=== PATIENT | male | born 1950 | race Caucasian/White ===

== ENCOUNTER 2023-07-25 13:50 | Inpatient (IN) | payer MEDICARE, BC ==
[~2023-07-25] VITALS: Ht 182.9 cm; Wt 128.8 kg
[2023-07-25] MEDS ORDERED: INSU300I SQ (18:05)
[2023-07-25] MEDS ORDERED: ATOR20TA PO (18:05)
[2023-07-25] MEDS ORDERED: ATEN50TA PO (18:05)
[2023-07-25] MEDS ORDERED: METF-442 PO (18:05)
[2023-07-25] MEDS ORDERED: APIX5TAB PO (18:05)
[2023-07-25] MEDS ORDERED: OLME1TAB19 PO (18:05)
[2023-07-25] MEDS ORDERED: FOLI0.8C PO (18:05)
[2023-07-25] MEDS ORDERED: MOUNJARO SQ (18:05)
[2023-07-25] MEDS ORDERED: SOLI10TA2 PO (18:05)
[2023-07-25 20:28] LABS: INR 1.14 (0.91-1.10)
[2023-07-25] MEDS ORDERED: ACETAMINOPHEN 325 MG TABLET PO PRN (23:00)
[2023-07-25] MEDS ORDERED: Z GUARD REMEDY 4 OZ OINT TP PRN (23:00)
[2023-07-25] MEDS ORDERED: ONDANSETRON HCL/PF 4 MG/2 ML VIAL IVP PRN (23:00)
[2023-07-25] MEDS ORDERED: MAG HYDROX/AL HYDROX/SIMETH 30 ML UDC PO PRN (23:00)
[2023-07-25] MEDS ORDERED: ZOLPIDEM TARTRATE 5 MG TABLET PO PRN (23:00)
[2023-07-25] MEDS ORDERED: DEXTROSE 50%-WATER 50 ML DISP.SYRIN IV PRN (23:00)
[2023-07-25] MEDS ORDERED: MAGNESIUM HYDROXIDE 30 ML UDC PO PRN (23:00)
[2023-07-25] MEDS ORDERED: HYDROCODONE/APAP 5/325MG TABLET PO PRN (23:00)
[2023-07-25] MEDS ORDERED: CEFTRIAXONE 1GM BAG (ER ONLY) 50 ML IV ONE (23:42)
[2023-07-25] MEDS: IV 1/2NS 1000 ML 1,000 ML IV PRN (23:46)
[2023-07-25] MEDS: CEFTRIAXONE 1 G in IV D5W 50 ML IV SCH (23:46)
[2023-07-26] MEDS: MORPHINE SULFATE INJ 2 MG/ML DISP.SYRIN IV PRN ×4 (05:33→20:36)
[2023-07-26 06:00] LABS: APPEARANCE,URINE CLEAR (CLEAR); BILIRUBIN,URINE NEGATIVE (NEGATIVE); BLOOD, URINE NEGATIVE Ery/uL (NEGATIVE); COLOR,URINE DARK YELLOW (YELLOW); KETONES,URINE NEGATIVE (NEGATIVE); LEUKOCYTE ESTERASE ,URINE NEGATIVE (NEGATIVE); NITRITE, URINE NEGATIVE (NEGATIVE); PROTEIN,URINE TRACE mg/dl (NEGATIVE); UGLUCOSE NEGATIVE (NEGATIVE); UROBILINOGEN,URINE 0.2 EU/dL (0.2)
[2023-07-26 07:00] VITALS: BP 127/72; TEMP 98.6; O2SAT 94
[2023-07-26] MEDS: BLOOD SUGAR DIAGNOSTIC 1 EACH STRIP VI SCH ×4 (07:10→21:01)
[2023-07-26 07:59] LABS: BASOPHILS % (AUTO) 0.2 % (0.0-2.0); EOSINOPHILS # (AUTO) 0.2 K/uL (0.0-0.7); EOSINOPHILS % (AUTO) 2.1 % (0.0-6.0); HEMATOCRIT 37 % (39-51); HEMOGLOBIN 12.1 g/dL (13.5-17.5); LYMPHOCYTES # (AUTO) 0.8 K/uL (0.8-4.8); LYMPHOCYTES % (AUTO) 8.8 % (20.0-44.0); MEAN CORPUSCULAR HEMOGLOBIN 28 PG (26.0-33.0); MEAN CORPUSCULAR HGB CONC 33 g/dl (31.0-36.0); MEAN CORPUSCULAR VOLUME 86 fL (80-96); MONOCYTES # (AUTO) 1.4 K/uL (0.1-1.30); MONOCYTES % (AUTO) 14.7 % (2.0-12.0); NEUTROPHILS # (AUTO) 7.1 K/uL (1.8-8.9); NEUTROPHILS % (AUTO) 74.2 % (43.0-81.0); PLATELET COUNT (AUTO) 150 K/uL (150-450); RED CELL DISTRIBUTION WIDTH 15.7 % (11.5-15.0); WHITE BLOOD COUNT (AUTO) 9.6 K/uL (4.3-11.0)
[2023-07-26 08:08] LABS: INR 1.1 (0.91-1.10); PROTHROMBIN TIME 11.6 SECS (9.2-11.1)
[2023-07-26 08:27] LABS: CALCIUM, SERUM 8.9 mg/dL (8.5-10.1); MAGNESIUM 2.1 mg/dL (1.8-2.4); POTASSIUM 3.8 mmol/L (3.5-5.1)
[2023-07-26] MEDS: PANTOPRAZOLE 40 MG VIAL IV SCH (09:33)
[2023-07-26] MEDS ORDERED: MIDAZOLAM HCL 2 MG/2ML VIAL ONE (14:02)
[2023-07-26] MEDS ORDERED: ROCURONIUM BROMIDE 50 MG/5 ML ONE (14:02)
[2023-07-26] MEDS ORDERED: FENTANYL PF 100MCG/2ML AMPUL ONE (14:02)
[2023-07-26] MEDS ORDERED: TRANEXAMIC ACID 1,000 MG/10 ML VIAL ONE (15:19)
[2023-07-26] MEDS ORDERED: HYDROMORPHONE INJ 2 MG/ML DISP.SYRIN ONE (15:34)
[2023-07-26] MEDS ORDERED: BUPIVACAINE 0.5 % PF 150 MG/30 ML VIAL ONE ×2 (15:34→15:57)
[2023-07-26] MEDS: INSULIN REGULAR, HUMAN 100 UNIT/ML 3 ML VIAL SQ PRN (18:26)
[2023-07-26] MEDS: IV 1/2NS 1000 ML 1,000 ML IV PRN (18:43)
[2023-07-26 20:00] VITALS: BP 130/80; TEMP 98.4; O2SAT 90; O2SAT 95
[2023-07-26] MEDS: CEFTRIAXONE 1 G in IV D5W 50 ML IV SCH (20:25)
[2023-07-26] MEDS: *INSULIN REGULAR(HUMULIN R)HUM 100 UNIT/ML VIAL SQ PRN (21:02)
[2023-07-26] MEDS: CEFAZOLIN 2 GM in IV D5W 100 ML IV SCH (22:53)
[2023-07-27] MEDS: CEFAZOLIN 2 GM in IV D5W 100 ML IV SCH ×2 (06:00→15:32)
[2023-07-27] MEDS: IV 1/2NS 1000 ML 1,000 ML IV PRN (06:10)
[2023-07-27] MEDS: MORPHINE SULFATE INJ 2 MG/ML DISP.SYRIN IV PRN ×3 (06:26→15:18)
[2023-07-27] MEDS: BLOOD SUGAR DIAGNOSTIC 1 EACH STRIP VI SCH ×4 (06:48→22:10)
[2023-07-27] MEDS: INSULIN REGULAR, HUMAN 100 UNIT/ML 3 ML VIAL SQ PRN ×2 (06:49→13:51)
[2023-07-27 07:25] LABS: BASOPHILS % (AUTO) 0.2 % (0.0-2.0); EOSINOPHILS % (AUTO) 0.1 % (0.0-6.0); HEMATOCRIT 35 % (39-51); HEMOGLOBIN 11.5 g/dL (13.5-17.5); LYMPHOCYTES # (AUTO) 0.8 K/uL (0.8-4.8); LYMPHOCYTES % (AUTO) 7.2 % (20.0-44.0); MEAN CORPUSCULAR HEMOGLOBIN 28 PG (26.0-33.0); MEAN CORPUSCULAR HGB CONC 33 g/dl (31.0-36.0); MEAN CORPUSCULAR VOLUME 87 fL (80-96); MONOCYTES # (AUTO) 1.4 K/uL (0.1-1.30); MONOCYTES % (AUTO) 12.7 % (2.0-12.0); NEUTROPHILS # (AUTO) 8.8 K/uL (1.8-8.9); NEUTROPHILS % (AUTO) 79.8 % (43.0-81.0); PLATELET COUNT (AUTO) 132 K/uL (150-450); RED BLOOD CELL COUNT(AUTO) 4.06 MIL/uL (4.5-6.0); RED CELL DISTRIBUTION WIDTH 15.5 % (11.5-15.0)
[2023-07-27 07:51] LABS: CALCIUM, SERUM 8.5 mg/dL (8.5-10.1); CREATININE 0.8 mg/dL (0.6-1.3); PHOSPHORUS 2.4 mg/dL (2.5-4.9); POTASSIUM 4.3 mmol/L (3.5-5.1)
[2023-07-27 08:00] VITALS: BP 145/88; TEMP 99; O2SAT 96
[2023-07-27] MEDS: PANTOPRAZOLE 40 MG VIAL IV SCH (09:04)
[2023-07-27] MEDS ORDERED: Sodium Phosphate 15 MMOL in IV NS 0.9% 245 ML IV ONE (16:00)
[2023-07-27] MEDS ORDERED: APIXABAN 5 MG TABLET PO ONE (17:00)
[2023-07-27 20:00] VITALS: BP 120/71; TEMP 98.5; O2SAT 94
[2023-07-27] MEDS: CEFTRIAXONE 1 G in IV D5W 50 ML IV SCH (21:40)
[2023-07-27] MEDS: *INSULIN REGULAR(HUMULIN R)HUM 100 UNIT/ML VIAL SQ PRN (22:10)
[2023-07-28] MEDS: IV 1/2NS 1000 ML 1,000 ML IV PRN (01:06)
[2023-07-28] MEDS: MORPHINE SULFATE INJ 2 MG/ML DISP.SYRIN IV PRN ×5 (01:22→22:00)
[2023-07-28] MEDS: INSULIN REGULAR, HUMAN 100 UNIT/ML 3 ML VIAL SQ PRN ×2 (06:40→11:57)
[2023-07-28] MEDS: BLOOD SUGAR DIAGNOSTIC 1 EACH STRIP VI SCH ×4 (06:40→21:02)
[2023-07-28 06:51] LABS: BASOPHILS % (AUTO) 0.3 % (0.0-2.0); EOSINOPHILS # (AUTO) 0.3 K/uL (0.0-0.7); EOSINOPHILS % (AUTO) 3.2 % (0.0-6.0); HEMATOCRIT 32 % (39-51); HEMOGLOBIN 10.7 g/dL (13.5-17.5); LYMPHOCYTES # (AUTO) 0.8 K/uL (0.8-4.8); LYMPHOCYTES % (AUTO) 9.3 % (20.0-44.0); MEAN CORPUSCULAR HEMOGLOBIN 28 PG (26.0-33.0); MEAN CORPUSCULAR HGB CONC 33 g/dl (31.0-36.0); MEAN CORPUSCULAR VOLUME 85 fL (80-96); MONOCYTES # (AUTO) 1.2 K/uL (0.1-1.30); MONOCYTES % (AUTO) 12.8 % (2.0-12.0); NEUTROPHILS # (AUTO) 6.8 K/uL (1.8-8.9); NEUTROPHILS % (AUTO) 74.4 % (43.0-81.0); PLATELET COUNT (AUTO) 158 K/uL (150-450); RED BLOOD CELL COUNT(AUTO) 3.79 MIL/uL (4.5-6.0); RED CELL DISTRIBUTION WIDTH 15.1 % (11.5-15.0); WHITE BLOOD COUNT (AUTO) 9.1 K/uL (4.3-11.0)
[2023-07-28 07:25] LABS: CALCIUM, SERUM 8.1 mg/dL (8.5-10.1); CREATININE 0.8 mg/dL (0.6-1.3); PHOSPHORUS 2.2 mg/dL (2.5-4.9); POTASSIUM 3.9 mmol/L (3.5-5.1)
[2023-07-28 07:30] VITALS: BP 141/92; TEMP 97.9; O2SAT 91
[2023-07-28] MEDS: PANTOPRAZOLE 40 MG VIAL IV SCH (09:17)
[2023-07-28 16:24] VITALS: BP 142/73; TEMP 98.3; O2SAT 90
[2023-07-28] MEDS ORDERED: Sodium Phosphate 15 MMOL in IV NS 0.9% 245 ML IV ONE (17:00)
[2023-07-28] MEDS: CEFTRIAXONE 1 G in IV D5W 50 ML IV SCH (20:49)
[2023-07-28 20:53] VITALS: BP 136/80; TEMP 98.1; O2SAT 91
[2023-07-28] MEDS: MUPIROCIN OINT 2% 22 GM TUBE NS SCH (20:53)
[2023-07-29] MEDS: IV 1/2NS 1000 ML 1,000 ML IV PRN ×2 (00:52→23:25)
[2023-07-29 07:30] VITALS: BP 139/79; TEMP 98.2; O2SAT 95
[2023-07-29 07:37] LABS: BASOPHILS % (AUTO) 0.5 % (0.0-2.0); EOSINOPHILS # (AUTO) 0.4 K/uL (0.0-0.7); EOSINOPHILS % (AUTO) 4.9 % (0.0-6.0); HEMATOCRIT 33 % (39-51); HEMOGLOBIN 10.8 g/dL (13.5-17.5); LYMPHOCYTES # (AUTO) 0.7 K/uL (0.8-4.8); LYMPHOCYTES % (AUTO) 8.5 % (20.0-44.0); MEAN CORPUSCULAR HEMOGLOBIN 28 PG (26.0-33.0); MEAN CORPUSCULAR HGB CONC 33 g/dl (31.0-36.0); MEAN CORPUSCULAR VOLUME 85 fL (80-96); MONOCYTES # (AUTO) 1.1 K/uL (0.1-1.30); MONOCYTES % (AUTO) 12.9 % (2.0-12.0); NEUTROPHILS # (AUTO) 6.5 K/uL (1.8-8.9); NEUTROPHILS % (AUTO) 73.2 % (43.0-81.0); PLATELET COUNT (AUTO) 185 K/uL (150-450); RED BLOOD CELL COUNT(AUTO) 3.86 MIL/uL (4.5-6.0); RED CELL DISTRIBUTION WIDTH 14.7 % (11.5-15.0); WHITE BLOOD COUNT (AUTO) 8.9 K/uL (4.3-11.0)
[2023-07-29] MEDS: MORPHINE SULFATE INJ 2 MG/ML DISP.SYRIN IV PRN (07:40)
[2023-07-29 07:51] LABS: CALCIUM, SERUM 8.5 mg/dL (8.5-10.1); CARBON DIOXIDE 21 mmol/L (21-32); CHLORIDE 102 mmol/L (98-107); CREATININE 0.7 mg/dL (0.6-1.3); GLUCOSE 139 mg/dL (74-106); PHOSPHORUS 2.4 mg/dL (2.5-4.9); POTASSIUM 3.8 mmol/L (3.5-5.1); SODIUM SERUM 133 mmol/L (136-145); UREA NITROGEN, BLOOD 11 mg/dL (7-18)
[2023-07-29] MEDS: PANTOPRAZOLE 40 MG VIAL IV SCH (08:43)
[2023-07-29] MEDS: MUPIROCIN OINT 2% 22 GM TUBE NS SCH ×2 (10:30→20:43)
[2023-07-29] MEDS ORDERED: POLYMYXIN B SULFATE 0 UNITS ONE (11:11)
[2023-07-29] MEDS ORDERED: BUPIVACAINE 0.5 % PF 150 MG/30 ML VIAL ONE (11:11)
[2023-07-29] MEDS ORDERED: ALBUMIN 5% 500 ML IV ONE (12:03)
[2023-07-29] MEDS ORDERED: FENTANYL PF 100MCG/2ML AMPUL ONE (12:04)
[2023-07-29] MEDS ORDERED: MIDAZOLAM HCL 2 MG/2ML VIAL ONE (12:04)
[2023-07-29] MEDS ORDERED: Magnesium 1 GM/2 ML VIAL ONE (12:04)
[2023-07-29] MEDS ORDERED: ROCURONIUM BROMIDE 50 MG/5 ML ONE (12:05)
[2023-07-29] MEDS ORDERED: ROPIVACAINE HCL 0.5% 5 MG/ML 30ML VIAL ONE (12:07)
[2023-07-29] MEDS ORDERED: DOCUSATE SODIUM 250 MG CAPSULE PO PRN (12:30)
[2023-07-29] MEDS: BLOOD SUGAR DIAGNOSTIC 1 EACH STRIP VI SCH ×4 (13:36→21:11)
[2023-07-29] MEDS ORDERED: DESFLURANE 240 ML BOTTLE IH ONE (14:21)
[2023-07-29 16:50] VITALS: BP 128/81; TEMP 98.3; O2SAT 96
[2023-07-29] MEDS ORDERED: Sodium Phosphate 15 MMOL in IV NS 0.9% 245 ML IV SCH (17:00)
[2023-07-29] MEDS ORDERED: BISACODYL SUPP (10 MG) 10 MG/SUPP.RECT SUPP.RECT RC PRN (17:30)
[2023-07-29] MEDS: INSULIN REGULAR, HUMAN 100 UNIT/ML 3 ML VIAL SQ PRN (17:37)
[2023-07-29 20:00] VITALS: BP 122/75; TEMP 98.2; O2SAT 93
[2023-07-29] MEDS ORDERED: APIXABAN 5 MG TABLET PO SCH (20:00)
[2023-07-29] MEDS: CEFAZOLIN 2 GM in IV D5W 100 ML IV SCH (21:01)
[2023-07-29] MEDS: *INSULIN REGULAR(HUMULIN R)HUM 100 UNIT/ML VIAL SQ PRN (21:15)
[2023-07-30] MEDS: MORPHINE SULFATE INJ 2 MG/ML DISP.SYRIN IV PRN ×5 (02:06→21:33)
[2023-07-30] MEDS: CEFAZOLIN 2 GM in IV D5W 100 ML IV SCH (05:09)
[2023-07-30] MEDS ORDERED: CEFAZOLIN 2 GM in IV D5W 100 ML IV SCH ×5 (07:00→14:00)
[2023-07-30] MEDS: BLOOD SUGAR DIAGNOSTIC 1 EACH STRIP VI SCH ×4 (07:03→21:18)
[2023-07-30 07:30] VITALS: BP 157/85; TEMP 98.8; O2SAT 96
[2023-07-30] MEDS: APIXABAN 5 MG TABLET PO SCH ×2 (08:15→17:12)
[2023-07-30] MEDS: PANTOPRAZOLE 40 MG VIAL IV SCH (08:16)
[2023-07-30] MEDS: MUPIROCIN OINT 2% 22 GM TUBE NS SCH ×2 (08:46→21:04)
[2023-07-30] MEDS ORDERED: APIXABAN 5 MG TABLET PO SCH (09:00)
[2023-07-30] MEDS ORDERED: NA PHOS,M-B/NA PHOS,DI-BA 1 EA ENEMA RC PRN (09:30)
[2023-07-30] MEDS: SENNOSIDES 8.6 MG TABLET PO SCH ×2 (12:43→21:04)
[2023-07-30] MEDS: LACTULOSE 10 G/15 ML UDC (PYXIS) PO SCH ×2 (12:43→17:11)
[2023-07-30 16:00] VITALS: BP 140/85; TEMP 99.1; O2SAT 95
[2023-07-30] MEDS: IV 1/2NS 1000 ML 1,000 ML IV PRN (16:32)
[2023-07-30 20:21] VITALS: BP 138/84; TEMP 98; O2SAT 98
[2023-07-31] MEDS: MORPHINE SULFATE INJ 2 MG/ML DISP.SYRIN IV PRN ×5 (01:30→20:21)
[2023-07-31] MEDS: IV 1/2NS 1000 ML 1,000 ML IV PRN (06:24)
[2023-07-31] MEDS: BLOOD SUGAR DIAGNOSTIC 1 EACH STRIP VI SCH ×4 (06:41→21:45)
[2023-07-31] MEDS: INSULIN REGULAR, HUMAN 100 UNIT/ML 3 ML VIAL SQ PRN ×3 (06:42→17:38)
[2023-07-31] MEDS: LACTULOSE 10 G/15 ML UDC (PYXIS) PO SCH ×2 (08:25→16:11)
[2023-07-31] MEDS: PANTOPRAZOLE 40 MG/PACK PACK PO SCH (08:25)
[2023-07-31] MEDS: APIXABAN 5 MG TABLET PO SCH ×2 (08:26→16:13)
[2023-07-31] MEDS: MUPIROCIN OINT 2% 22 GM TUBE NS SCH ×2 (08:35→21:25)
[2023-07-31 09:18] VITALS: BP 147/84; TEMP 98.6; O2SAT 92
[2023-07-31] MEDS ORDERED: POLYETHYLENE GLYCOL 3350 17 GM POWD.PACK PO ONE (09:30)
[2023-07-31 18:44] VITALS: BP 141/78; TEMP 99; O2SAT 98
[2023-07-31 19:00] VITALS: BP 147/88; TEMP 98.9; O2SAT 96
[2023-07-31 20:00] VITALS: BP 147/88; TEMP 98.9; O2SAT 96
[2023-07-31] MEDS: SENNOSIDES 8.6 MG TABLET PO SCH (21:25)
[2023-07-31] MEDS: *INSULIN REGULAR(HUMULIN R)HUM 100 UNIT/ML VIAL SQ PRN (22:15)
[2023-08-01] MEDS: BLOOD SUGAR DIAGNOSTIC 1 EACH STRIP VI SCH ×2 (05:56→12:54)
[2023-08-01] MEDS: MORPHINE SULFATE INJ 2 MG/ML DISP.SYRIN IV PRN ×2 (06:49→10:53)
[2023-08-01 08:00] VITALS: BP 134/78; TEMP 97.5; O2SAT 94
[2023-08-01] MEDS: LACTULOSE 10 G/15 ML UDC (PYXIS) PO SCH (09:14)
[2023-08-01] MEDS: PANTOPRAZOLE 40 MG/PACK PACK PO SCH (09:14)
[2023-08-01] MEDS: MUPIROCIN OINT 2% 22 GM TUBE NS SCH (09:14)
[2023-08-01] MEDS: APIXABAN 5 MG TABLET PO SCH (09:16)
[2023-08-01] MEDS: IV 1/2NS 1000 ML 1,000 ML IV PRN (09:19)
[2023-08-01] MEDS: *INSULIN REGULAR(HUMULIN R)HUM 100 UNIT/ML VIAL SQ PRN (12:54)
[2023-08-01] MEDS ORDERED: ATORVASTATIN 10 MG TABLET PO SCH (13:30)
[2023-08-01] MEDS ORDERED: HOME MED MISCELLANEOUS XX SCH ×5 (13:30)
[2023-08-01] MEDS ORDERED: ATENOLOL 50 MG TABLET PO SCH (17:00)
[2023-08-01] MEDS ORDERED: APIXABAN 5 MG TABLET PO SCH (17:00)
[2023-08-01] MEDS ORDERED: METFORMIN 500 MG TABLET PO SCH (17:00)
[2023-08-06] MEDS ORDERED: APIXABAN 5 MG TABLET PO SCH (09:00)
== END 2023-08-01 14:24 | DRG 481 ==
LOC: MED 17:40
PROVIDERS: ADMIT Student in an Organized Health Care Education/Training Program; ATTEND Nurse Practitioner Acute Care
PROC: 0QS606Z Reposition Right Upper Femur with Intramedullary Internal Fixation Device, Open Approach (ICD-10-PCS; principal; 2023-07-26)
PROC: 0PSK04Z Reposition Right Ulna with Internal Fixation Device, Open Approach (ICD-10-PCS; 2023-07-29)
DX: S72.141A Displaced intertrochanteric fracture of right femur, initial encounter for closed fracture (principal); I82.512 Chronic embolism and thrombosis of left femoral vein; L03.115 Cellulitis of right lower limb; L03.116 Cellulitis of left lower limb; I82.532 Chronic embolism and thrombosis of left popliteal vein; S52.021A Displaced fracture of olecranon process without intraarticular extension of right ulna, initial encounter for closed fracture; E11.9 Type 2 diabetes mellitus without complications; I10 Essential (primary) hypertension; K59.00 Constipation, unspecified; Z79.01 Long term (current) use of anticoagulants; W19.XXXA Unspecified fall, initial encounter; Y93.9 Activity, unspecified; Y92.89 Other specified places as the place of occurrence of the external cause
CPT/HCPCS: 36415; 71045-TC; 73070-TC; 73080-TC; 73501; 74018; 80048-TC; 82962-TC; 83735-TC; 84100-TC; 85025-TC; 85610-TC; 86850-TC; 87081-TC; 93307-TC; 93970-TC; 97110-TC; 97116-TC; 97530-TC; A4217; A4223; A6209; A6253; A6403; A9563; C1713; C9113; G0378; J0690; J0696; J1100; J1170; J1815; J1885; J2250; J2270; J2704; J2765; J2795; J3010; J3475; J3490; J7030; J7040; J7050; J7060; P9045